=== PATIENT | female | born 1990 | race African-American/Black ===

== ENCOUNTER 2021-03-24 21:20 | Emergency (ER) | payer BC ==
[2021-03-24 22:25] LABS: #Monocytes 0.6 10x3/uL (0.0-1.1); #Neutrophils 6.9 10x3/uL (1.5-8.4); %Basophils 0.3 % (0.0-2.0); %Eosinophils 0.2 % (0.0-6.0); %Lymphocytes 16.1 % (18.0-47.0); %Monocytes 6.2 % (0.0-10.0); %Neutrophils 76.8 % (40.0-75.0); Hemoglobin 13.5 g/dL (12.0-15.5); Mean Corpuscular HGB CONC 31.8 g/dL (32.0-36.0); Mean Corpuscular Hemoglobin 24.5 pg (27.0-33.0); Mean Corpuscular Volume 76.8 fl (81.6-98.3); Mean Platelet Volume 9.8 fl (7.4-10.4); Platelet Count 390 10x3/uL (150-450); RBC Distribution Width 17.4 % (11.5-14.5); Red Blood Cell (RBC) Count 5.52 10x6/uL (3.90-5.03)
[2021-03-24] MEDS ORDERED: Ondansetron PF 4 MG/2 ML Vial ONE (22:27)
[2021-03-24] MEDS ORDERED: Promethazine HCl 25 MG/ML VIAL ONE (22:28)
[2021-03-24 22:51] LABS: ALT (SGPT) 18 U/L (8-55); AST (SGOT) 21 U/L (5-34); Albumin 4.5 g/dL (3.5-5.0); Alkaline Phosphatase 68 U/L (40-110); Anion Gap 16 mmol/L (10-20); BUN (Urea Nitrogen) 9 mg/dL (7.0-18.7); Bilirubin, Total 0.4 mg/dL (0.2-1.2); Calc. Creatinine Clearance 0 mL/min (70-130); Calcium 10.3 mg/dL (7.8-10.44); Carbon Dioxide 25 mmol/L (22-29); Chloride 100 mmol/L (98-107); Globulin 4.3 g/dL (2.4-3.5); Glucose 103 mg/dL (70-105); Potassium 3.3 mmol/L (3.5-5.1); Protein, Total 8.8 g/dL (6.0-8.3); Sodium 138 mmol/L (136-145)
[2021-03-24 22:53] LABS: Bilirubin 3+ (Negative); Blood, Urine 250 (Negative); Clarity Slightly Cloudy (Clear); Glucose, Urine (Dipstick) Normal (Negative); Ketone, Urine 150 mg/dL (Negative); Leukocyte 100 (Negative); Nitrite Positive (Negative); Protein, Urine (Dipstick) 100 mg/dl (Neg-Trace); Specific Gravity, Urine 1.025 (1.002-1.036)
[2021-03-24 23:01] LABS: Bacteria/HPF 4+ HPF (None Seen); WBC/HPF 21-50 HPF (0-3)
== END 2021-03-24 23:55 | disposition home or self-care (01) ==
LOC: CSHERS 21:20
DX: O23.41 Unspecified infection of urinary tract in pregnancy, first trimester (principal); O21.0 Mild hyperemesis gravidarum; Z3A.08 8 weeks gestation of pregnancy
CPT/HCPCS: 80053; 81003; 81015; 85025; 96374; 96375; J2405; J2550

== ENCOUNTER 2021-03-29 16:58 | Emergency (ER) | payer BC ==
[2021-03-29 18:14] LABS: #Monocytes 0.5 10x3/uL (0.0-1.1); #Neutrophils 7.3 10x3/uL (1.5-8.4); %Basophils 0.2 % (0.0-2.0); %Lymphocytes 12.7 % (18.0-47.0); %Neutrophils 80.9 % (40.0-75.0); Hemoglobin 13.7 g/dL (12.0-15.5); Mean Corpuscular HGB CONC 31.2 g/dL (32.0-36.0); Mean Corpuscular Volume 76.7 fl (81.6-98.3); Mean Platelet Volume 9.8 fl (7.4-10.4); Platelet Count 429 10x3/uL (150-450); RBC Distribution Width 16.2 % (11.5-14.5); Red Blood Cell (RBC) Count 5.72 10x6/uL (3.90-5.03)
[2021-03-29 18:29] LABS: ALT (SGPT) 35 U/L (8-55); AST (SGOT) 28 U/L (5-34); Albumin 4.5 g/dL (3.5-5.0); Alkaline Phosphatase 73 U/L (40-110); Anion Gap 18 mmol/L (10-20); BUN (Urea Nitrogen) 11 mg/dL (7.0-18.7); Bilirubin, Total 0.8 mg/dL (0.2-1.2); Calc. Creatinine Clearance 0 mL/min (70-130); Calcium 10.3 mg/dL (7.8-10.44); Carbon Dioxide 25 mmol/L (22-29); Chloride 97 mmol/L (98-107); Globulin 4.4 g/dL (2.4-3.5); Glucose 100 mg/dL (70-105); Potassium 3.5 mmol/L (3.5-5.1); Protein, Total 8.9 g/dL (6.0-8.3); Sodium 136 mmol/L (136-145)
[2021-03-29 19:34] LABS: Bilirubin 3+ (Negative); Blood, Urine 25 (Negative); Clarity Clear (Clear); Glucose, Urine (Dipstick) Normal (Negative); Ketone, Urine 150 mg/dL (Negative); Leukocyte 25 (Negative); Nitrite Negative (Negative); Protein, Urine (Dipstick) 100 mg/dl (Neg-Trace)
[2021-03-29] MEDS ORDERED: Ondansetron PF 4 MG/2 ML Vial ONE ×2 (19:36→22:27)
[2021-03-29 19:45] LABS: Bacteria/HPF Rare-Few HPF (None Seen); Mucous/LPF 2+ LPF (<2+); RBC/HPF 0-3 HPF (0-3)
[2021-03-29] MEDS ORDERED: Mag-Al Plus 1200 MG/1200 MG/120 MG/30 ML UDCUP ONE (23:01)
[2021-03-29] MEDS ORDERED: Lidocaine Viscous Sol 2% 15 ml UD Cup ONE (23:01)
[2021-03-29] MEDS ORDERED: Metoclopramide HCl 10 MG/2 ML VIAL ONE (23:11)
== END 2021-03-30 00:50 | disposition home or self-care (01) ==
LOC: CSHERS 16:58
DX: O21.0 Mild hyperemesis gravidarum (principal); Z3A.09 9 weeks gestation of pregnancy
CPT/HCPCS: 80053; 81003; 81015; 85025; 87086; 96374; 96375; 96376; J2405; J2765

== ENCOUNTER 2021-05-13 12:58 | Emergency (ER) | payer BC, MEDICAID ==
[2021-05-13] MEDS ORDERED: Ondansetron PF 4 MG/2 ML Vial ONE (14:19)
[2021-05-13 14:44] LABS: Bilirubin Neg (Negative); Blood, Urine Negative (Negative); Clarity Clear (Clear); Glucose, Urine (Dipstick) Normal (Negative); Ketone, Urine 150 mg/dL (Negative); Leukocyte 25 (Negative); Nitrite Negative (Negative); Protein, Urine (Dipstick) 30 mg/dl (Neg-Trace); Urobilinogen Normal mg/dL (Less than 2)
[2021-05-13 14:51] LABS: ALT (SGPT) 13 U/L (8-55); AST (SGOT) 15 U/L (5-34); Alkaline Phosphatase 71 U/L (40-110); Anion Gap 15 mmol/L (10-20); BUN (Urea Nitrogen) 8 mg/dL (7.0-18.7); Bilirubin, Total 0.2 mg/dL (0.2-1.2); Calc. Creatinine Clearance 0 mL/min (70-130); Calcium 9.7 mg/dL (7.8-10.44); Carbon Dioxide 20 mmol/L (22-29); Chloride 105 mmol/L (98-107); Globulin 4.1 g/dL (2.4-3.5); Glucose 103 mg/dL (70-105); Lipase 30 U/L (8-78); Potassium 3.8 mmol/L (3.5-5.1); Protein, Total 8.1 g/dL (6.0-8.3); Sodium 136 mmol/L (136-145)
[2021-05-13 14:52] LABS: #Monocytes 0.6 10x3/uL (0.0-1.1); #Neutrophils 13.1 10x3/uL (1.5-8.4); %Basophils 0.1 % (0.0-2.0); %Eosinophils 0.1 % (0.0-6.0); %Monocytes 3.8 % (0.0-10.0); %Neutrophils 86.1 % (40.0-75.0); Bacteria/HPF 2+ HPF (None Seen); Hemoglobin 11.3 g/dL (12.0-15.5); Mean Corpuscular Hemoglobin 25.2 pg (27.0-33.0); Mean Corpuscular Volume 78.6 fl (81.6-98.3); Platelet Count 346 10x3/uL (150-450); RBC Distribution Width 18.2 % (11.5-14.5); RBC/HPF 0-3 HPF (0-3); Red Blood Cell (RBC) Count 4.49 10x6/uL (3.90-5.03); White Blood Cell (WBC) Count 15.2 10x3/uL (3.5-10.5)
[2021-05-13] MEDS ORDERED: Famotidine 20 MG TAB ONE (17:45)
[2021-05-13] MEDS ORDERED: Metoclopramide HCl 10 MG/2 ML VIAL ONE (18:08)
== END 2021-05-13 19:04 | disposition home or self-care (01) ==
LOC: CSHERS 12:58
DX: O21.9 Vomiting of pregnancy, unspecified (principal); Z3A.16 16 weeks gestation of pregnancy
CPT/HCPCS: 80053; 81003; 81015; 83690; 85025; 87086; 96374; 96375; J2405; J2765

== ENCOUNTER 2021-05-27 04:06 | Emergency (ER) | payer BC, MEDICAID, OTHER ==
[2021-05-27] MEDS ORDERED: Metoclopramide HCl 10 MG/2 ML VIAL ONE (04:42)
[2021-05-27] MEDS ORDERED: diphenhydrAMINE 50 MG/ML VIAL ONE (04:42)
[2021-05-27] MEDS ORDERED: Ondansetron PF 4 MG/2 ML Vial ONE (05:05)
[2021-05-27 05:21] LABS: ALT (SGPT) 15 U/L (8-55); AST (SGOT) 18 U/L (5-34); Albumin 3.5 g/dL (3.5-5.0); Alkaline Phosphatase 53 U/L (40-110); Anion Gap 15 mmol/L (10-20); BUN (Urea Nitrogen) 6 mg/dL (7.0-18.7); Bilirubin, Total 0.2 mg/dL (0.2-1.2); Calc. Creatinine Clearance 0 mL/min (70-130); Calcium 9.1 mg/dL (7.8-10.44); Carbon Dioxide 17 mmol/L (22-29); Chloride 108 mmol/L (98-107); Globulin 3.4 g/dL (2.4-3.5); Glucose 80 mg/dL (70-105); Protein, Total 6.9 g/dL (6.0-8.3); Sodium 136 mmol/L (136-145)
[2021-05-27 05:35] LABS: #Basophils 0.1 10x3/uL (0.0-0.2); #Eosinphils 0.2 10x3/uL (0.0-0.5); #Monocytes 0.7 10x3/uL (0.0-1.1); #Neutrophils 8.1 10x3/uL (1.5-8.4); %Basophils 0.5 % (0.0-2.0); %Eosinophils 1.4 % (0.0-6.0); %Lymphocytes 21.5 % (18.0-47.0); %Monocytes 6.1 % (0.0-10.0); %Neutrophils 69.1 % (40.0-75.0); Hemoglobin 10.6 g/dL (12.0-15.5); Mean Corpuscular HGB CONC 31.6 g/dL (32.0-36.0); Mean Corpuscular Hemoglobin 25.6 pg (27.0-33.0); Mean Corpuscular Volume 80.9 fl (81.6-98.3); Mean Platelet Volume 10.6 fl (7.4-10.4); Platelet Count 279 10x3/uL (150-450); RBC Distribution Width 18.3 % (11.5-14.5); Red Blood Cell (RBC) Count 4.14 10x6/uL (3.90-5.03); White Blood Cell (WBC) Count 11.7 10x3/uL (3.5-10.5)
== END 2021-05-27 06:17 | disposition home or self-care (01) ==
LOC: CSHERS 04:06
DX: O21.9 Vomiting of pregnancy, unspecified (principal); Z3A.16 16 weeks gestation of pregnancy
CPT/HCPCS: 80053; 85025; 96374; 96375; J1200; J2405; J2765

== ENCOUNTER 2021-08-30 23:34 | Day surgery (SDC) | payer OTHER, BC ==
[2021-08-31 00:22] VITALS: BMI 34.3
[2021-08-31] MEDS ORDERED: hydrALAZINE 20 MG/ML VIAL SLOW IVP PRN (01:08)
[2021-08-31] MEDS ORDERED: Lactated Ringer's 1,000 ML IV SCH (01:15)
[2021-08-31] MEDS ORDERED: Ondansetron PF 4 MG/2 ML Vial IVP SCH (01:15)
== END 2021-08-31 03:07 | disposition home or self-care (01) ==
LOC: CSHERS 23:34 → CSHLD/OP 23:51
PROVIDERS: ATTEND Obstetrics & Gynecology
DX: O99.613 Diseases of the digestive system complicating pregnancy, third trimester (principal); K52.9 Noninfective gastroenteritis and colitis, unspecified; Z3A.31 31 weeks gestation of pregnancy; Z88.0 Allergy status to penicillin
CPT/HCPCS: 96360; 96374; 99282; J2405

== ENCOUNTER 2021-10-10 18:25 | Day surgery (SDC) | payer BC, OTHER ==
[2021-10-10] MEDS ORDERED: hydrALAZINE 20 MG/ML VIAL SLOW IVP PRN (19:03)
[2021-10-10 20:25] VITALS: BMI 37.5
[2021-10-10 20:29] LABS: Bilirubin Neg (Negative); Blood, Urine 50 (Negative); Clarity Clear (Clear); Glucose, Urine (Dipstick) Normal (Negative); Ketone, Urine Negative (Negative); Leukocyte Negative (Negative); Nitrite Negative (Negative); Protein, Urine (Dipstick) Negative (Neg-Trace); Specific Gravity, Urine 1.005 (1.002-1.036); Urobilinogen Normal mg/dL (Less than 2)
[2021-10-10 20:32] LABS: Urine Culture Reflex No No
[2021-10-10 20:39] LABS: Bacteria/HPF Rare-Few HPF (None Seen); RBC/HPF 0-3 HPF (0-3); Squamous Epithelial 0-3 HPF (0-3); WBC/HPF None Seen HPF (0-3)
== END 2021-10-10 23:15 | disposition home or self-care (01) ==
LOC: CSHLD/OP 18:25
PROVIDERS: ATTEND Obstetrics & Gynecology
DX: O26.893 Other specified pregnancy related conditions, third trimester (principal); R10.9 Unspecified abdominal pain; Z3A.36 36 weeks gestation of pregnancy; Z88.0 Allergy status to penicillin
CPT/HCPCS: 51701; 76770; 81001; 99284

== ENCOUNTER 2021-10-18 11:15 | Day surgery (SDC) | payer OTHER ==
[2021-10-18] MEDS ORDERED: hydrALAZINE 20 MG/ML VIAL SLOW IVP PRN (13:52)
== END 2021-10-18 14:00 | disposition home or self-care (01) ==
LOC: CSHLD/OP 11:15
PROVIDERS: ATTEND Obstetrics & Gynecology
DX: O47.1 False labor at or after 37 completed weeks of gestation (principal); O24.410 Gestational diabetes mellitus in pregnancy, diet controlled; Z3A.38 38 weeks gestation of pregnancy; Z88.0 Allergy status to penicillin
CPT/HCPCS: 99283

== ENCOUNTER 2021-10-19 11:33 | Inpatient (IN) | payer OTHER ==
[~2021-10-19 11:33] MED LIST: Bupivacaine 0.25% HCL 30 ML VIAL ONE; Bupivacaine/Epinephrine 0.25% 30 ML VIAL ONE; Lidocaine 2% MPF 10 ML AMP (For Epidural Use) ONE
[2021-10-19 11:47] VITALS: BMI 38.9
[2021-10-19] MEDS ORDERED: Ondansetron PF 4 MG/2 ML Vial IVP PRN ×3 (13:18→18:28)
[2021-10-19] MEDS ORDERED: Butorphanol Tartrate 1 MG/ML VIAL SLOW IVP PRN (13:18)
[2021-10-19] MEDS ORDERED: Acetaminophen 500 MG TAB PO PRN (13:18)
[2021-10-19] MEDS ORDERED: Ibuprofen 800 MG TAB PO PRN (13:18)
[2021-10-19] MEDS ORDERED: Carboprost 250 MCG/ML AMP IM PRN (13:18)
[2021-10-19] MEDS ORDERED: Diphenoxylate HCl/Atropine Tablet PO PRN (13:18)
[2021-10-19] MEDS ORDERED: Promethazine HCl 25 MG/ML VIAL IM PRN ×3 (13:18→18:28)
[2021-10-19] MEDS ORDERED: hydrALAZINE 20 MG/ML VIAL SLOW IVP PRN ×2 (13:18→18:28)
[2021-10-19] MEDS ORDERED: Lidocaine 1% (PF) 30 ML VIAL SC PRN (13:18)
[2021-10-19] MEDS ORDERED: Misoprostol 200 MCG TAB PR PRN (13:18)
[2021-10-19] MEDS ORDERED: HYDROcodone/Acetaminophen 5/325 mg Tablet PO PRN ×2 (13:18→18:28)
[2021-10-19] MEDS ORDERED: Methylergonovine 0.2 MG/ML VIAL IM PRN (13:18)
[2021-10-19] MEDS ORDERED: NS w/ Oxytocin 30 units 500 ML IV SCH ×2 (13:30)
[2021-10-19] MEDS ORDERED: Lactated Ringer's 1,000 ML IV SCH (13:30)
[2021-10-19] MEDS ORDERED: Fentanyl 2 mcg/Bup 0.1% Cadd 100 ML ONE (13:40)
[2021-10-19 13:56] LABS: Mean Corpuscular HGB CONC 29.9 g/dL (32.0-36.0); Mean Corpuscular Hemoglobin 21.9 pg (27.0-33.0); Mean Corpuscular Volume 73.2 fl (81.6-98.3); Platelet Count 192 10x3/uL (150-450); RBC Distribution Width 20.1 % (11.5-14.5); Red Blood Cell (RBC) Count 3.66 10x6/uL (3.90-5.03); White Blood Cell (WBC) Count 8.8 10x3/uL (3.5-10.5)
[2021-10-19 14:29] LABS: SARS-CoV-2 NAA Rapid Test Not Detected (NotDetected)
[2021-10-19 14:29] LABS: Hep B Surf Ag Non-Reactive S/CO (NonReactive); Syphilis Antibody Nonreactive (Nonreactive); Syphilis Antibody Index 0.06 S/CO (<1.00 Non-Reactive)
[2021-10-19 14:30] LABS: HBSAg Index 0.19 S/CO (0-0.99)
[2021-10-19] MEDS ORDERED: diphenhydrAMINE 50 MG/ML VIAL IVP PRN (14:35)
[2021-10-19] MEDS ORDERED: ePHEDrine Sulfate 50 MG/10 ML VIAL SLOW IVP PRN (14:35)
[2021-10-19] MEDS ORDERED: Naloxone HCl 0.4 mg/ml Vial IVP PRN ×2 (14:35)
[2021-10-19] MEDS ORDERED: Lactated Ringer's 500 ML IV PRN (14:35)
[2021-10-19] MEDS ORDERED: Moisturizing Cream (Eucerin) 113 GM JAR TOP PRN (14:35)
[2021-10-19] MEDS ORDERED: Acetaminophen 325 MG TAB PO PRN (14:35)
[2021-10-19] MEDS ORDERED: Communication Order-Pharmacy FS SCH (14:45)
[2021-10-19] MEDS ORDERED: Fentanyl 2 mcg/Bupivacaine 0.1% Cassette 100 ML EPIDURAL SCH (14:45)
[2021-10-19] MEDS ORDERED: Bisacodyl 10 MG SUPP PR PRN (18:28)
[2021-10-19] MEDS ORDERED: diphenhydrAMINE 25 MG CAP PO PRN (18:28)
[2021-10-19] MEDS ORDERED: Milk Of Magnesia 30 ML UDCUP PO PRN (18:28)
[2021-10-19] MEDS ORDERED: Preparation H Ointment 28 GM TUBE PR PRN (18:28)
[2021-10-19] MEDS ORDERED: Benzocaine-Menthol 82.5 ML CAN TOP PRN (18:28)
[2021-10-19] MEDS ORDERED: Zolpidem Tartrate 5 MG TAB PO PRN (18:28)
[2021-10-19] MEDS ORDERED: Lanolin Ointment 7 GM TUBE TOP PRN (18:28)
[2021-10-19] MEDS ORDERED: Ferrous Sulfate 325 MG TAB PO SCH (19:00)
[2021-10-19] MEDS: Ibuprofen 800 MG TAB PO SCH (21:43)
[2021-10-19] MEDS: HYDROcodone/Acetaminophen 5/325 mg Tablet PO PRN (22:29)
[2021-10-20] MEDS: Ibuprofen 800 MG TAB PO SCH ×3 (05:39→21:46)
[2021-10-20] MEDS: Docusate 100 MG CAP PO SCH ×3 (09:15→21:46)
[2021-10-20] MEDS: Prenatal Vitamin 1 TAB PO SCH (09:15)
[2021-10-20] MEDS: Ferrous Sulfate 325 MG TAB PO SCH ×2 (09:17→17:02)
[2021-10-20 10:38] LABS: Hemoglobin 7.4 g/dL (12.0-15.5)
[2021-10-20] MEDS ORDERED: Iron, Sodium Ferric Gluconate 250 MG in Sodium Chloride 0.9% 250 ML 250 ML IVPB SCH (13:00)
[2021-10-20] MEDS: HYDROcodone/Acetaminophen 5/325 mg Tablet PO PRN (13:15)
[2021-10-20] MEDS ORDERED: Boostrix 0.5 ML (Tdap) VIAL IM ONE (18:28)
[2021-10-21] MEDS: Ibuprofen 800 MG TAB PO SCH (05:09)
[2021-10-21 08:25] VITALS: BP 126/75; TEMP 98
[2021-10-21] MEDS: Ferrous Sulfate 325 MG TAB PO SCH (08:29)
[2021-10-21] MEDS: Docusate 100 MG CAP PO SCH (08:29)
[2021-10-21] MEDS: Prenatal Vitamin 1 TAB PO SCH (08:29)
== END 2021-10-21 14:40 | disposition home or self-care (01) | DRG 807 ==
LOC: CSHLD/OP 11:33 → CSHLD 16:53 → CSHPP 18:25
PROVIDERS: ADMIT Student in an Organized Health Care Education/Training Program; ATTEND Student in an Organized Health Care Education/Training Program
PROC: 10E0XZZ Delivery of Products of Conception, External Approach (ICD-10-PCS; principal; 2021-10-19)
PROC: 0KQM0ZZ Repair Perineum Muscle, Open Approach (ICD-10-PCS; 2021-10-19)
PROC: 10907ZC Drainage of Amniotic Fluid, Therapeutic from Products of Conception, Via Natural or Artificial Opening (ICD-10-PCS; 2021-10-19)
DX: O24.425 Gestational diabetes mellitus in childbirth, controlled by oral hypoglycemic drugs (principal); Z37.0 Single live birth; Z79.84 Long term (current) use of oral hypoglycemic drugs; Z3A.38 38 weeks gestation of pregnancy; Z20.822 Contact with and (suspected) exposure to COVID-19; F32.A Depression, unspecified; E66.9 Obesity, unspecified; O99.214 Obesity complicating childbirth; O99.344 Other mental disorders complicating childbirth; Z88.0 Allergy status to penicillin; O70.1 Second degree perineal laceration during delivery; O90.81 Anemia of the puerperium; D50.0 Iron deficiency anemia secondary to blood loss (chronic)
CPT/HCPCS: 36415; 36416; 51702; 82728; 85014; 85018; 86780; 86850; 86900; 86901; 87340; 99285; J2001; J2590; J2916; J7050; S0020; U0002

== ENCOUNTER 2024-01-08 12:24 | Day surgery (SDC) | payer MEDICAID, OTHER ==
[2024-01-08] MEDS ORDERED: hydrALAZINE 20 MG/ML VIAL SLOW IVP PRN (13:51)
== END 2024-01-08 16:00 | disposition home health service (06) ==
LOC: CSHLD/OP 12:24
PROVIDERS: ATTEND Family Medicine
DX: O47.03 False labor before 37 completed weeks of gestation, third trimester (principal); O99.213 Obesity complicating pregnancy, third trimester; O21.2 Late vomiting of pregnancy; O98.313 Other infections with a predominantly sexual mode of transmission complicating pregnancy, third trimester; E66.812 Obesity, class 2; O24.113 Pre-existing type 2 diabetes mellitus, in pregnancy, third trimester; O98.813 Other maternal infectious and parasitic diseases complicating pregnancy, third trimester; A74.9 Chlamydial infection, unspecified; D50.9 Iron deficiency anemia, unspecified; Z88.0 Allergy status to penicillin; Z3A.31 31 weeks gestation of pregnancy; Z79.899 Other long term (current) drug therapy
CPT/HCPCS: 76817; 99282

== ENCOUNTER 2024-02-06 11:46 | Inpatient (IN) | payer OTHER ==
[2024-02-06 12:22] VITALS: BMI 40.7
[2024-02-06] MEDS ORDERED: hydrALAZINE 20 MG/ML VIAL SLOW IVP PRN (12:30)
[2024-02-06] MEDS ORDERED: Promethazine HCl 25 MG/ML VIAL IM PRN (12:30)
[2024-02-06] MEDS ORDERED: Insulin Lispro 100 UNIT/ML 10 ML VIAL SC PRN (12:40)
[2024-02-06] MEDS ORDERED: Dextrose 5% in Water 1,000 ML IV PRN (12:40)
[2024-02-06] MEDS ORDERED: Dextrose 50% Abboject 50 ML SYRINGE SLOW IVP PRN (12:40)
[2024-02-06] MEDS ORDERED: Glucagon 1 MG/ML KIT IM PRN (12:40)
[2024-02-06 14:42] LABS: Hematocrit 28.2 % (34.9-44.5); Hemoglobin 8.6 g/dL (12.0-15.5); Mean Corpuscular HGB CONC 30.5 g/dL (32.0-36.0); Mean Corpuscular Hemoglobin 21.8 pg (27.0-33.0); Mean Corpuscular Volume 71.4 fL (81.6-98.3); Platelet Count 223 10x3/uL (150-450); RBC Distribution Width 21.2 % (11.5-14.5); Red Blood Cell (RBC) Count 3.95 10x6/uL (3.90-5.03); White Blood Cell (WBC) Count 12.3 10x3/uL (3.5-10.5)
[2024-02-06 15:02] LABS: Syphilis Antibody Nonreactive (Nonreactive); Syphilis Antibody Index 0.06 S/CO (<1.00 Non-Reactive)
[2024-02-06 15:03] LABS: HBsAg Index 0.16 S/CO (0-0.99); Hep B Surf Ag Non-Reactive S/CO (NonReactive)
[2024-02-06] MEDS: Insulin Lispro 100 UNIT/ML 10 ML VIAL SC PRN ×3 (15:03→21:19)
[2024-02-06] MEDS: Acetaminophen 500 MG TAB PO SCH (17:44)
[2024-02-06] MEDS: Iron Sucrose Complex 500 MG in Sodium Chloride 0.9% 250 ML 250 ML IVPB SCH (18:29)
[2024-02-07 00:30] LABS: ALT (SGPT) 13 U/L (8-55); AST (SGOT) 14 U/L (5-34); Albumin 2.6 g/dL (3.5-5.0); Alkaline Phosphatase 111 U/L (40-110); Anion Gap 12 mmol/L (10-20); BUN (Urea Nitrogen) 9 mg/dL (7.0-18.7); Bilirubin, Total 0.2 mg/dL (0.2-1.2); Calc. Creatinine Clearance 171 mL/min (70-130); Calcium 8.8 mg/dL (7.8-10.44); Carbon Dioxide 18 mmol/L (22-29); Chloride 109 mmol/L (98-107); Estimated GFR 104; Globulin 3.4 g/dL (2.4-3.5); Glucose 169 mg/dL (70-105); Potassium 4.1 mmol/L (3.5-5.1); Sodium 135 mmol/L (136-145)
[2024-02-07] MEDS: Lantus 1000 UNITS/10 ML VIAL SC SCH (08:43)
[2024-02-07] MEDS: Prenatal Vitamin 1 TAB PO SCH (09:18)
[2024-02-07] MEDS: Insulin Lispro 100 UNIT/ML 10 ML VIAL SC SCH ×3 (11:17→22:32)
[2024-02-07] MEDS ORDERED: Insulin Lispro 100 UNIT/ML 10 ML VIAL SC SCH (21:30)
[2024-02-07] MEDS: metFORMIN 500 MG TAB PO SCH (22:32)
[2024-02-08] MEDS ORDERED: Sodium Ferric Gluconate 250 MG in Sodium Chloride 0.9% 250 ML 250 ML IVPB SCH (06:45)
[2024-02-08] MEDS ORDERED: IRON SUCROSE COMPLEX 100 MG/5 ML SLOW IVP SCH (06:45)
[2024-02-08] MEDS: metFORMIN 500 MG TAB PO SCH (07:40)
[2024-02-08] MEDS: Lantus 1000 UNITS/10 ML VIAL SC SCH (08:17)
[2024-02-08] MEDS: Insulin Lispro 100 UNIT/ML 10 ML VIAL SC SCH (08:17)
[2024-02-08] MEDS: Ondansetron PF 4 MG/2 ML Vial IVP PRN (11:50)
[2024-02-08] MEDS: Iron Sucrose Complex 100 MG in Sodium Chloride 0.9% 100 ML IVPB SCH (13:08)
[2024-02-08 13:16] LABS: Bilirubin Neg (Negative); Blood, Urine Negative (Negative); Clarity Clear (Clear); Glucose, Urine (Dipstick) Normal (Negative); Ketone, Urine Negative (Negative); Leukocyte 100 (Negative); Nitrite Negative (Negative); Protein, Urine (Dipstick) 15 mg/dl (Neg-Trace); Specific Gravity, Urine 1.015 (1.005-1.030); Urobilinogen Normal mg/dL (Less than 2)
[2024-02-08 13:26] LABS: Bacteria/HPF 3+ HPF (None Seen); CAUTI Indications for Culture Pregnancy; RBC/HPF None Seen HPF (0-3); WBC/HPF 0-3 HPF (0-3)
[2024-02-08 13:27] LABS: Urine Culture Reflex No No; Urine Culture Reflex Yes Yes
[2024-02-08 21:16] VITALS: BP 124/67; TEMP 98.3
== END 2024-02-08 20:25 | disposition home or self-care (01) | DRG 832 ==
LOC: CSHANTE 11:46 → OBSVTOIN 02-08 09:13
PROVIDERS: ADMIT Family Medicine; ATTEND Family Medicine
DX: O24.113 Pre-existing type 2 diabetes mellitus, in pregnancy, third trimester (principal); O41.03X0 Oligohydramnios, third trimester, not applicable or unspecified; E11.65 Type 2 diabetes mellitus with hyperglycemia; O99.013 Anemia complicating pregnancy, third trimester; D50.9 Iron deficiency anemia, unspecified; O99.213 Obesity complicating pregnancy, third trimester; O28.5 Abnormal chromosomal and genetic finding on antenatal screening of mother; O99.891 Other specified diseases and conditions complicating pregnancy; R00.0 Tachycardia, unspecified; Z3A.35 35 weeks gestation of pregnancy; Z86.19 Personal history of other infectious and parasitic diseases; Z79.84 Long term (current) use of oral hypoglycemic drugs; Z79.4 Long term (current) use of insulin; Z79.899 Other long term (current) drug therapy; Z88.0 Allergy status to penicillin; E66.813 Obesity, class 3
CPT/HCPCS: 36415; 36416; 76819; 80053; 81001; 82010; 85027; 86780; 86850; 86900; 86901; 87086; 87340; 87480; 87510; 87660; J1756; J1815; J2405; J7050

== ENCOUNTER 2024-02-23 21:58 | Inpatient (IN) | payer OTHER ==
[2024-02-23 22:34] VITALS: BMI 40.7
[2024-02-23] MEDS ORDERED: Diphenoxylate HCl/Atropine Tablet PO PRN (23:16)
[2024-02-23] MEDS ORDERED: Acetaminophen 500 MG TAB PO PRN (23:16)
[2024-02-23] MEDS ORDERED: hydrALAZINE 20 MG/ML VIAL SLOW IVP PRN (23:16)
[2024-02-23] MEDS ORDERED: Methylergonovine 0.2 MG/ML VIAL IM PRN (23:16)
[2024-02-23] MEDS ORDERED: Carboprost 250 MCG/ML AMP IM PRN (23:16)
[2024-02-23] MEDS ORDERED: Promethazine HCl 25 MG/ML VIAL IM PRN (23:16)
[2024-02-23] MEDS ORDERED: Tranexamic Acid 1,000 MG/10 ML VIAL IVP PRN (23:16)
[2024-02-23] MEDS ORDERED: Misoprostol 200 MCG TAB PR PRN (23:16)
[2024-02-23] MEDS ORDERED: Oxytocin 30 units/NS 500 ML 500 ML IV SCH (23:30)
[2024-02-23 23:45] LABS: ALT (SGPT) 13 U/L (8-55); AST (SGOT) 13 U/L (5-34); Albumin 2.9 g/dL (3.5-5.0); Alkaline Phosphatase 138 U/L (40-110); Anion Gap 16 mmol/L (10-20); BUN (Urea Nitrogen) 8 mg/dL (7.0-18.7); Bilirubin, Total 0.2 mg/dL (0.2-1.2); Calc. Creatinine Clearance 136 mL/min (70-130); Calcium 8.9 mg/dL (7.8-10.44); Carbon Dioxide 17 mmol/L (22-29); Chloride 107 mmol/L (98-107); Estimated GFR 79; Globulin 3.5 g/dL (2.4-3.5); Glucose 292 mg/dL (70-105); Potassium 4.5 mmol/L (3.5-5.1); Protein, Total 6.4 g/dL (6.0-8.3); Sodium 135 mmol/L (136-145)
[2024-02-23 23:49] LABS: Hematocrit 33.1 % (34.9-44.5); Hemoglobin 10.1 g/dL (12.0-15.5); Mean Corpuscular HGB CONC 30.5 g/dL (32.0-36.0); Mean Corpuscular Hemoglobin 23.3 pg (27.0-33.0); Mean Corpuscular Volume 76.3 fL (81.6-98.3); Mean Platelet Volume 10.9 fL (7.4-10.4); Platelet Count 305 10x3/uL (150-450); RBC Distribution Width 27.9 % (11.5-14.5); Red Blood Cell (RBC) Count 4.34 10x6/uL (3.90-5.03); White Blood Cell (WBC) Count 10.4 10x3/uL (3.5-10.5)
[2024-02-24 00:05] LABS: HBsAg Index 0.17 S/CO (0-0.99); Hep B Surf Ag - L&D Non-Reactive S/CO (NonReactive)
[2024-02-24 00:07] LABS: Syphilis Antibody Nonreactive (Nonreactive); Syphilis Antibody Index 0.08 S/CO (<1.00 Non-Reactive)
[2024-02-24] MEDS: Lactated Ringer's 1,000 ML IV PRN (00:28)
[2024-02-24] MEDS ORDERED: Glucagon 1 MG/ML KIT IM PRN ×3 (00:30→16:45)
[2024-02-24] MEDS ORDERED: Dextrose 5% in Water 1,000 ML IV PRN ×3 (00:30→16:45)
[2024-02-24] MEDS ORDERED: Dextrose 50% Abboject 50 ML SYRINGE SLOW IVP PRN ×3 (00:30→16:45)
[2024-02-24] MEDS: INSULIN REGULAR IN 0.9 % NACL 100 ML IVPB SCH (00:48)
[2024-02-24] MEDS: Misoprostol 100 MCG TAB VAG SCH (03:30)
[2024-02-24] MEDS ORDERED: INSULIN REGULAR IN 0.9 % NACL 100 ML IVPB SCH (04:00)
[2024-02-24] MEDS: Ondansetron PF 4 MG/2 ML Vial IVP PRN (04:03)
[2024-02-24] MEDS: Lactated Ringer's 1,000 ML IV SCH (04:03)
[2024-02-24] MEDS: Lantus 1000 UNITS/10 ML VIAL SC SCH (04:33)
[2024-02-24] MEDS: Insulin Lispro 100 UNIT/ML 10 ML VIAL SC SCH (06:40)
[2024-02-24] MEDS ORDERED: Bicitra 30 ML UDCUP PO PRN (08:26)
[2024-02-24] MEDS ORDERED: Clindamycin/D5W 900 MG in Premix 1 BAG IVPB SCH (08:30)
[2024-02-24] MEDS ORDERED: CEFAZOLIN 2 GM in Sodium Chloride 0.9% 100 ML IVPB SCH (08:45)
[2024-02-24] MEDS: Famotidine/PF 20 mg/2ml Vial SLOW IVP PRN (08:50)
[2024-02-24] MEDS ORDERED: fentaNYL 50 mcg/mL 1 mL Vial SLOW IVP PRN (09:10)
[2024-02-24] MEDS ORDERED: Promethazine HCl 25 MG/ML VIAL IM PRN (09:10)
[2024-02-24] MEDS ORDERED: Meperidine HCl/PF 25 MG (1 mL) VIAL SLOW IVP PRN (09:10)
[2024-02-24] MEDS ORDERED: Naloxone HCl 0.4 mg/ml Vial IV PRN (09:10)
[2024-02-24] MEDS ORDERED: Naloxone HCl 0.4 mg/ml Vial IVP PRN ×2 (09:10)
[2024-02-24] MEDS ORDERED: Ondansetron PF 4 MG/2 ML Vial IVP PRN ×2 (09:10)
[2024-02-24] MEDS ORDERED: Moisturizing Cream (Eucerin) 113 GM JAR TOP PRN (09:10)
[2024-02-24] MEDS ORDERED: diphenhydrAMINE 50 MG/ML VIAL IVP PRN (09:10)
[2024-02-24] MEDS ORDERED: Ketorolac Tromethamine 30 MG (1 mL) VIAL IVP SCH (09:15)
[2024-02-24] MEDS ORDERED: Communication Order-Pharmacy FS SCH (09:15)
[2024-02-24] MEDS: CEFAZOLIN 2 GM VIAL ONE (10:10)
[2024-02-24] MEDS ORDERED: Bisacodyl 10 MG SUPP PR PRN (11:32)
[2024-02-24] MEDS ORDERED: Acetaminophen 325 MG TAB PO PRN (11:32)
[2024-02-24] MEDS ORDERED: diphenhydrAMINE 25 MG CAP PO PRN (11:32)
[2024-02-24] MEDS ORDERED: Simethicone Chewable 80 MG TAB PO PRN (11:32)
[2024-02-24] MEDS ORDERED: Misoprostol 200 MCG TAB PR PRN (11:32)
[2024-02-24] MEDS ORDERED: hydrALAZINE 20 MG/ML VIAL SLOW IVP PRN (11:32)
[2024-02-24] MEDS ORDERED: Lanolin Ointment 7 GM TUBE TOP PRN (11:32)
[2024-02-24] MEDS ORDERED: Methylergonovine 0.2 MG/ML VIAL IM PRN (11:32)
[2024-02-24] MEDS ORDERED: Oxytocin 30 units/NS 500 ML 500 ML IV SCH (11:45)
[2024-02-24] MEDS: Ketorolac Tromethamine 30 MG (1 mL) VIAL IVP PRN (15:16)
[2024-02-24] MEDS ORDERED: Insulin Regular, Human 100 UNIT/ML 10 ML VIAL SC PRN (16:14)
[2024-02-24] MEDS ORDERED: Insulin Lispro 100 UNIT/ML 10 ML VIAL SC PRN ×2 (16:45→18:45)
[2024-02-24] MEDS: metFORMIN 500 MG TAB PO SCH (17:25)
[2024-02-24] MEDS: ePHEDrine Sulfate 50 MG/10 ML VIAL ONE (19:13)
[2024-02-24] MEDS: Morphine PF 10 MG/10 ML VIAL ONE (19:13)
[2024-02-24] MEDS: Famotidine/PF 20 mg/2ml Vial ONE (19:13)
[2024-02-24] MEDS: Oxytocin 10 UNITS/ML VIAL ONE (19:13)
[2024-02-24] MEDS: Ondansetron PF 4 MG/2 ML Vial ONE (19:13)
[2024-02-24] MEDS: Dexmedetomidine 200 MCG/2 ML VIAL ONE (19:13)
[2024-02-24] MEDS: PHENYLEPHRINE-NS 100 MCG/ML 10 ML SYRINGE ONE (19:13)
[2024-02-24] MEDS: Misoprostol 200 MCG TAB ONE (19:14)
[2024-02-24] MEDS ORDERED: Insulin Regular, Human 100 UNIT/ML 10 ML VIAL SC SCH (21:00)
[2024-02-24] MEDS ORDERED: Enoxaparin 40 MG (0.4 mL) SYRINGE SC SCH (21:00)
[2024-02-24] MEDS: Ferrous Sulfate 325 MG TAB PO SCH (21:26)
[2024-02-24] MEDS: Docusate 100 MG CAP PO SCH (21:27)
[2024-02-24] MEDS ORDERED: Enoxaparin 40 MG (0.4 mL) SYRINGE SC ONE (23:40)
[2024-02-25 04:16] LABS: Hematocrit 28.8 % (34.9-44.5); Hemoglobin 8.4 g/dL (12.0-15.5); Mean Corpuscular HGB CONC 29.2 g/dL (32.0-36.0); Mean Corpuscular Hemoglobin 23.1 pg (27.0-33.0); Mean Corpuscular Volume 79.1 fL (81.6-98.3); Mean Platelet Volume 10.6 fL (7.4-10.4); Platelet Count 195 10x3/uL (150-450); RBC Distribution Width 27.9 % (11.5-14.5); Red Blood Cell (RBC) Count 3.64 10x6/uL (3.90-5.03); White Blood Cell (WBC) Count 7.7 10x3/uL (3.5-10.5)
[2024-02-25 04:27] LABS: ALT (SGPT) 12 U/L (8-55); AST (SGOT) 23 U/L (5-34); Albumin 2.1 g/dL (3.5-5.0); Alkaline Phosphatase 93 U/L (40-110); Anion Gap 12 mmol/L (10-20); BUN (Urea Nitrogen) 8 mg/dL (7.0-18.7); Bilirubin, Total 0.4 mg/dL (0.2-1.2); Calc. Creatinine Clearance 171 mL/min (70-130); Calcium 8.1 mg/dL (7.8-10.44); Carbon Dioxide 19 mmol/L (22-29); Chloride 109 mmol/L (98-107); Estimated GFR 104; Glucose 86 mg/dL (70-105); Potassium 4.1 mmol/L (3.5-5.1); Protein, Total 5.1 g/dL (6.0-8.3); Sodium 136 mmol/L (136-145)
[2024-02-25] MEDS: Enoxaparin 40 MG (0.4 mL) SYRINGE SC SCH (08:56)
[2024-02-25] MEDS: HYDROcodone/Acetaminophen 5/325 mg Tablet PO PRN (08:56)
[2024-02-25] MEDS: Prenatal Vitamin 1 TAB PO SCH (08:56)
[2024-02-25] MEDS ORDERED: Iron Sucrose Complex 100 MG in Sodium Chloride 0.9% 100 ML IVPB SCH (09:45)
[2024-02-25] MEDS: Sodium Ferric Gluconate 125 MG, Admixture Fee 1 EACH in Sodium Chloride 0.9% 100 ML IVPB SCH (11:56)
[2024-02-25] MEDS: Ibuprofen 800 MG TAB PO SCH (14:51)
[2024-02-26] MEDS: Boostrix 0.5 ML (Tdap) VIAL (>/=7 yrs of age) IM ONE (08:11)
[2024-02-26 23:06] VITALS: TEMP 98.5
[2024-02-27 08:17] VITALS: BP 102/62
== END 2024-02-27 16:40 | disposition home or self-care (01) | DRG 787 ==
LOC: CSHLD 21:58 → CSHPP 02-24 14:20
PROVIDERS: ADMIT Family Medicine; ATTEND Family Medicine
PROC: 10D00Z1 Extraction of Products of Conception, Low, Open Approach (ICD-10-PCS; principal; 2024-02-24)
DX: O24.425 Gestational diabetes mellitus in childbirth, controlled by oral hypoglycemic drugs (principal); D62 Acute posthemorrhagic anemia; O99.02 Anemia complicating childbirth; O36.63X0 Maternal care for excessive fetal growth, third trimester, not applicable or unspecified; O99.214 Obesity complicating childbirth; Z3A.38 38 weeks gestation of pregnancy; Z37.0 Single live birth; Z91.148 Patient's other noncompliance with medication regimen for other reason; Z88.0 Allergy status to penicillin; E66.813 Obesity, class 3; O76 Abnormality in fetal heart rate and rhythm complicating labor and delivery
CPT/HCPCS: 36415; 36416; 51702; 76819; 80053; 85027; 86780; 86850; 86900; 86901; 87340; J1650; J1815; J1885; J2274; J2405; J2590; J2916; J3490; J7120